=== PATIENT | female | born 2000 | race Caucasian/White ===

== ENCOUNTER 2022-10-11 08:20 | Day surgery (SDC) | payer OTHER ==
[~2022-10-11] VITALS: Ht 167.6 cm; Wt 56.7 kg
[2022-10-11] MEDS ORDERED: fentaNYL CITRATE/PF 100 MCG/2 ML AMP ONE ×2 (08:24→09:58)
[2022-10-11] MEDS ORDERED: MIDAZOLAM HCL 5 MG/5 ML VIAL ONE ×2 (08:24→09:59)
[2022-10-11 09:03] LABS: HCG,QUAL RESULT NEGATIVE (NEGATIVE)
[2022-10-11] MEDS ORDERED: DIPHENHYDRAMINE INJ 50 MG/ML VIAL ONE (09:51)
[2022-10-11 13:29] VITALS: BP_SYST 109
== END 2022-10-11 11:29 | disposition home or self-care (01) ==
LOC: SDS 08:20 → SMU 08:21 → SDS 11:29
PROVIDERS: ATTEND Internal Medicine
DX: R10.13 Epigastric pain (principal); K29.50 Unspecified chronic gastritis without bleeding; K21.9 Gastro-esophageal reflux disease without esophagitis; K76.0 Fatty (change of) liver, not elsewhere classified; K31.84 Gastroparesis; F17.210 Nicotine dependence, cigarettes, uncomplicated; F41.9 Anxiety disorder, unspecified; Z90.49 Acquired absence of other specified parts of digestive tract; Z79.899 Other long term (current) drug therapy
CPT/HCPCS: 43239; 87081; 84703; 36415; 88305; 88312; 88313; 99152; G0378; J1200; J2250; J3010